=== PATIENT | female | born 1960 | race Caucasian/White ===

== ENCOUNTER 2018-05-14 10:50 | Emergency (ER) | payer MEDICARE ==
[~2018-05-14] VITALS: Ht 167.6 cm; Wt 51.8 kg
--- NOTE | ~2018-05-14 | CN ---
PATIENT NAME:LUCAS ACHARYA MEDICAL RECORD: [id number] : 60 LOCATION:.ER ADMIT DATE: ACCOUNT: [id number] CONSULTING PHYSICIAN: BRITTNEY HERNANDEZ MD REFERRING PHYSICIAN: RAEGAN ROMERO MD DATE OF CONSULTATION: 05/14/2018 CARDIOLOGY CONSULTATION DIAGNOSES: 1. Angina. 2. Out of control hypertension. 3. Family history of coronary artery disease. 4. Smoking history. HISTORY OF PRESENT ILLNESS: Ms. Acharya presents with episodes of chest discomfort and labile hypertension. She is on losartan. Her blood pressure is often high. If she takes her losartan, the blood pressure bottoms out. She has been having episodes of chest pain and chest discomfort and chest tightness along with this as well. Her troponin is normal. Her EKG is with nonspecific ST-T abnormalities. She is not having chest pain now. OVERALL IMPRESSION: Labile hypertension. Losartan obviously is not the best agent for her. She often gets palpitations with the hypertension. We will just put her on atenolol 50 mg every day and perform outpatient cardiac catheterization. Further care depends on findings catheterization. TRANSINT:[id number] Voice Confirmation ID: [id number] DOCUMENT ID: [id number] BRITTNEY HERNANDEZ MD at 1859 CC: [id number] DICTATION DATE: 05/14/18 1321 ROLLER PRINTING SUPERVISOR: 05/14/18 1329 DEP ER 05/14/18 [address] [place] [address]
[2018-05-14 11:01] VITALS: Ht 167.6 cm; Wt 51.8 kg
[2018-05-14] MEDS ORDERED: XANAX0.5 MG PO (11:02)
[2018-05-14 11:34] LABS: BASOPHILS 0.8 % (0-2); EOSINOPHILS 3.9 % (0-7); HEMATOCRIT 42.5 % (36.0-48.0); HEMOGLOBIN 14.8 g/dL (12-16); IMMATURE GRANULOCYTES 0.2 % (0-5); LYMPHOCYTES 42.6 % (15-50); MCH 30.6 pg (26.0-34.0); MCHC 34.8 g/dL (31.0-37.0); MEAN PLATELET VOLUME 9.5 fL (7.4-10.4); MONOCYTES 6.7 % (2-11); NEUTROPHILS 45.8 % (40-80); PLATELET COUNT 316 10x3/uL (130-400); RBC 4.83 10x6/uL (4.00-5.40); RDW 12.9 % (11.5-14.5); WBC 6.6 10x3/uL (4.8-10.8)
[2018-05-14 11:52] LABS: ALBUMIN 3.6 g/dL (3.4-5.0); ALKALINE PHOSPHATASE 109 U/L (46-116); ALT (SGPT) 12 U/L (10-68); BILIRUBIN - TOTAL 0.31 mg/dL (0.2-1.3); CALC OSMOLALITY 281 mosm/kg (275-300); CARBON DIOXIDE 29.1 mmol/L (21.0-32.0); CHLORIDE - SERUM 106 mmol/L (98-107); CREATININE - SERUM 1.1 mg/dL (0.6-1.3); GLUCOSE 113 mg/dL (74-106); PROTEIN - SERUM 7.3 g/dL (6.4-8.2); SODIUM 140 mmol/L (136-145); UREA NITROGEN 17 mg/dL (7-18); eGFR NON AFRICAN AMERICAN 54 mL/min (90-120)
[2018-05-14 12:02] LABS: CKMB 0.9 U/L (0.0-3.6); CREATINE KINASE 69 UL (21-215); TROPONIN-I < 0.017 ng/mL (0.000-0.060)
[2018-05-14] MEDS ORDERED: TENORMIN50 MG PO (13:16)
[2018-05-14 13:43] VITALS: BP 136/64
[2018-05-15] MEDS ORDERED: PLAVIX75 MG PO (09:30)
[2018-05-15 09:43] VITALS: Ht 167.6 cm; Wt 51.8 kg
[2018-05-15] MEDS ORDERED: TENORMIN50 MG PO (13:10)
== END 2018-05-14 13:43 | disposition home or self-care (01) ==
LOC: D.ER 10:50
PROVIDERS: Family Medicine
DX: R07.9 Chest pain, unspecified (principal); F17.200 Nicotine dependence, unspecified, uncomplicated; I10 Essential (primary) hypertension; J44.9 Chronic obstructive pulmonary disease, unspecified

== ENCOUNTER 2018-05-15 09:12 | Outpatient (CLI) | payer MEDICARE ==
[~2018-05-15] VITALS: Ht 167.6 cm; Wt 54.5 kg
--- NOTE | ~2018-05-15 | OP ---
PATIENT NAME: LUCAS BLUNT MEDICAL RECORD: [id number] :60 LOCATION:D.CAT ADMISSION DATE: SURGEON: BRITTNEY HERNANDEZ MD DATE OF OPERATION: 05/15/2018 PROCEDURES: 1. Left heart catheterization. 2. Selective coronary angiography. 3. Left ventriculogram. INDICATION: Angina and coronary artery disease. PROCEDURE IN DETAIL: After informed consent was obtained and after a detailed description of the risks, benefits as well as alternative therapies, the patient elected to proceed with angiogram and heart catheterization. The right radial area was prepped and draped in normal sterile fashion. Right radial artery was cannulated via modified Seldinger technique with placement of 5-Telugu sheath. All catheters exchanged through this sheath. FINDINGS: Left ventriculogram was performed in standard 30-degree FERNANDEZ view, reveals good cardiac wall motion throughout all segments. Overall ejection fraction estimated 60%. SELECTIVE CORONARY ANGIOGRAPHY: Left main, left anterior descending, left circumflex, right coronary artery are all smooth-walled vessels with no angiographic evidence of coronary artery disease. OVERALL IMPRESSION: 1. No angiographic evidence of coronary artery disease. 2. Normal left heart pressures. 3. Normal left ventricular systolic function. Chest pain is noncardiac in etiology. No further cardiac workup needs to be ascertained. TRANSINT:[id number] Voice Confirmation ID: [id number] DOCUMENT ID: [id number] BRITTNEY HERNANDEZ MD at 1859 CC: [id number] DICTATION DATE: 05/15/18 1258 CHIEF PAYROLL CLERK: 05/15/18 1312 DEP CLI 05/15/18 [place] [id number] [place] [id number]
--- NOTE | ~2018-05-15 | HEMODYNAMI ---
PATIENT:LUCAS BLUNT MEDICAL RECORD: [id number] : 60 LOCATION:D.CAT ADMISSION DATE: 05/15/18 Generatedon:05/15/201813:00 Patient name: LUCAS BLUNT Patient #: [id number] SSN: : 1960 Date of study: 05/15/2018 Page: Of Hemodynamic Procedure Report Patient Data Patient Demographics Procedure consent was obtained First Name: LUCAS Gender: Female Last Name: MERLENE : 1960 Patient #: [id number] Age: 58 year(s) Race: Unknown Additional ID: [id number] Contact details Address: [address] [place] [address] State: [place] City: [place] Zip code: [address] Past Medical History Allergies Allergen Reaction Date Comments Reported Penicillins 05/15/2018 Admission Admission Data Admission Date: 05/15/2018 Admission Time: 9:12 Lab Results Lab Result Date: 05/15/2018 Lab Result Time: 0:00 Biochemistry Name Units Result Min Max BUN mg/dl 20 --(----)*- 7 18 Creatinine mg/dl 0.9 --(-*--)-- 0.6 1.3 CBC Name Units Result Min Max Hemoglobin g/dl 14.9 --(-*--)-- 13.5 17.5 Procedure Procedure Types Cath Procedure Diagnostic Procedure [facility] w/Coronaries Procedure Description Procedure Date Procedure Date: 05/15/2018 Procedure Start Time: 12:50 Procedure End Time: 12:56 Procedure Staff Name Function Yobani Bhatia MD Performing Physician Mana Gardner RT Monitor Vishal Nguyễn RN Nurse Luz Elena Trevino RN Nurse Harriett Hawk RT Scrub Procedure Data Cath Procedure Fluoroscopy Diagnostic fluoroscopy Total fluoroscopy Time: 0.9 time: 0.9 min min Diagnostic fluoroscopy Total fluoroscopy dose: 108 dose: 108 mGy mGy Contrast Material Contrast Material Type Amount (ml) Isovue 300 40 Entry Location Entry Primary Successful Side Size Upsize Upsize Entry Closure Schmidt ccessful Closure Location (Fr) 1 (Fr) 2 (Fr) Remarks Device Remarks Radial Right 5 Fr Mechanical artery Compression Estimated blood loss: 5 ml Diagnostic catheters Device Type Used For End Catheter Placement DIAGNOSTIC [place] 110cm 5 Procedure Fr catheter ([id number]) Procedure Complications No complications Procedure Medications Medication Administration Route Dosage 0.9% NaCl I.V. 100 ml/hr Oxygen etCO2 Nasal cannula 2 l/min Heparin Flush Bag added to field 2 bags (1000units/500ml NS) Lidocaine 2% added to field 20 Radial Cocktail added to field 1 syringe (Verapomil 2mg/Nitro 400mcg/Heparin 1500units) Versed I.V. 1 mg Fentanyl I.V. 50 mcg Versed I.V. 1 mg Fentanyl I.V. 75 mcg Hemodynamics Rest HGB: 14.9 (g/dl) Heart Rate: 60 (bpm) Snapshots Pre Cath Intra NCS Post Cath Vital Signs Time Heart Resp SPO2 etCO2 NIBP (mmHg) Rhythm Pain Sedation Rate (ipm) (%) (mmHg) Status Level (bpm) 12:34:54 54 12 98 44 159/104(124) NSR 0 (11) 10(A) , No pain 12:39:32 56 14 99 34.6 146/91(109) NSR 0 (11) 10(A) , No pain 12:44:13 58 20 94 41.4 120/75(86) NSR 0 (11) 10(A) , No pain 12:48:49 57 13 100 43.7 108/62(85) NSR 0 (11) 9(A) , No pain 12:53:26 56 14 100 44.5 83/50(70) NSR 0 (11) 9(A) , No pain 12:59:57 60 15 97 46 87/51(73) NSR 0 (11) 10(A) , No pain 13:00:30 63 8 89 52 Aborted NSR 0 (11) 10(A) , No pain Medications Time Medication Route Dose Verified Delivered Reason Notes Effectiveness by by 12:36:45 0.9% NaCl I.V. 100 Yobani Luz Elena used for ml/hr Sriram Trevino human resource internship 12:36:58 Oxygen etCO2 2 l/min Yobani Molinayla used for Nasal Sriram Trevino procedure cannula RN 12:37:08 Heparin Flush added 2 bags Yobani Sadlera used for Bag to Sriram Trevino procedure (1000units/500ml field RN NS) 12:37:23 Lidocaine 2% added 20ml Yobani Hilton for local to vial Sriram Bhatia MD anesthetic field 12:49:19 Versed I.V. 1 mg Yobani Luz Elena for sedation Sriram Trevino RN 12:49:28 Fentanyl I.V. 50 mcg Yobani Luz Elena for sedation Sriram Trevino RN 12:52:15 Versed I.V. 1 mg Yobani Luz Elena for sedation Sriram Trevino RN 12:52:19 Fentanyl I.V. 75 mcg Yobani Luz Elena for sedation Sriram Trevino RN 12:52:23 Radial Cocktail added 1 Yobani Hilton for (Verapomil to syringe Sriram Bhatia MD vasodilation 2mg/Nitro field 400mcg/Heparin 1500units) Procedure Log Time Note 12:22:04 Vishal Nguyễn RN sent for patient. Start room use. 12:22:05 Time tracking: Regular hours (M-F 7:00 - 5:00) 12:22:08 Plan of Care:Hemodynamics will remain stable., Cardiac rhythm will remain stable., Comfort level will be maintained., Respiratory function will remain adequate., Patient/ family verbilizes understanding of procedure., Procedure tolerated without complication., Recovers from procedure without complications.. 12:29:37 Patient received from Pre/Post Procedure Room to CCL 1 Alert and oriented. Tansferred to table in Supine position. 12:29:38 Warm blankets applied, and april hugger turned on for patient comfort. 12:29:39 Correct patient and procedure confirmed by team. 12:29:40 Signed procedure consent form obtained from patient. 12:29:41 ECG and BP/O2 sat monitors applied to patient. 12:29:41 Full Disclosure recording started 12:34:05 Vital chart was started 12:34:53 Rhythm: sinus bradycardia 12:36:45 0.9% NaCl 100 ml/hr I.V. was administered by Luz Elena Trevino RN; used for procedure; 12:36:58 Oxygen 2 l/min etCO2 Nasal cannula was administered by Luz Elena Trevino RN; used for procedure; 12:37:08 Heparin Flush Bag (1000units/500ml NS) 2 bags added to field was administered by Luz Elena Trevino RN; used for procedure; 12:37:23 Lidocaine 2% 20ml vial added to field was administered by Yobani Bhatia MD; for local anesthetic; 12:42:07 Baseline sample Acquired. 12:42:17 H&P Date Dictated: 05/14/2018 Within 30 days and on chart., H&P Addendum completed by physician on day of procedure. (MUST COMPLETE FOR ALL OUTPATIENTS). 12:42:19 Pre-procedure instructions explained to patient. 12:42:19 Pre-op teaching completed and patient verbalized understanding. 12:42:20 Family in patients room. 12:42:22 Patient NPO since Midnight. 12:42:27 Patient allergic to Penicillins 12:42:30 Is the patient allergic to Iodine/contrast media? No. 12:42:31 Is patient on blood thinner?No 12:42:32 Patient diabetic? No. 12:42:35 Patient not . Patient is over age 55. 12:42:37 Previous problem with sedation/anesthesia? No ? 12:42:38 Snore? No 12:42:40 Sleep apnea? No 12:42:41 Deviated septum? No 12:42:42 Opens mouth fully? Yes 12:42:42 Sticks out tongue? Yes 12:42:45 Airway obstruction? Yes COPD 12:42:51 Dentures? No ? 12:42:55 Modified Tyler's test Ulnar < 7 seconds 12:42:56 Patient pain scale 0/10 ?. 12:43:01 IV patent on arrival in left hand with 0.[facility]% [facility] at [facility]. 12:43:05 Right Radial & Right Groin area was prepped with chlora-prep and draped in sterile fashion 12:43:06 Alarms reviewed by R. N. 12:43:06 Sharps counted by scrub and verified by R.N. 12:45:02 Use device set Radial Dx or PCI 12:45:03 ACIST Syringe (83394) opened to sterile field. 12:45:04 Bag Decanter () opened to sterile field. 12:45:04 ACIST Hand Control (79816) opened to sterile field. 12:45:05 ACIST Manifold (95037) opened to sterile field. 12:45:06 Tegaderm 4 x 4 (1626W) opened to sterile field. 12:45:08 Medline Cath Pack ([id number]) opened to sterile field. 12:45:08 DIAGNOSTIC WIRE .035 260cm J wire (744460) opened to sterile field. 12:45:09 MBrace Wrist Support ([id number]) opened to sterile field. 12:45:10 SHEATH 6Fr Prelude Radial ([id number]) opened to sterile field. 12:47:24 Lab Result : BUN 20 mg/dl 12:47:24 Lab Result : Creatinine 0.9 mg/dl 12:47:25 Lab Result : Hemoglobin 14.9 g/dl 12:48:38 --------ALL STOP TIME OUT------ 12:48:38 Final Timeout: patient, procedure, and site verified with staff and physician. All members of the team are in agreement. 12:48:40 Right Radial & Right Groin site verified by team. 12:48:43 Physical assessment completed. ASA score P 2 - A patient with mild systemic disease as per Yobani Bhatia MD. 12:48:46 Sedation plan: IV Moderate Sedation Medication:Versed, Fentanyl 12:49:19 Versed 1 mg I.V. was administered by Luz Elena Trevino RN; for sedation; 12:49:28 Fentanyl 50 mcg I.V. was administered by Luz Elena Trevino RN; for sedation; 12:49:37 Procedure started. 12:49:45 Zero performed for pressure channel P1 12:50:01 Local anesthetic to right radial artery with Lidocaine 2% by Yobani Bhatia MD.INITIAL ACCESS ONLY 12:51:24 A 5 Fr sheath was inserted into the Right Radial artery 12:51:35 A DIAGNOSTIC [place] 110cm 5 Fr catheter (136595) was advanced over the wire and used for Procedure. 12:52:15 Versed 1 mg I.V. was administered by Luz Elena Trevino RN; for sedation; 12:52:19 Fentanyl 75 mcg I.V. was administered by Luz Elena Trevino RN; for sedation; 12:52:23 Radial Cocktail (Verapomil 2mg/Nitro 400mcg/Heparin 1500units) 1 syringe added to field was administered by Yobani Bhatia MD; for vasodilation; 12:52:28 LV gram done using FERNANDEZ 12:52:30 Injector settings: Ml/sec: 5, Volume: 15, 12:52:42 EF : 60 % 12:53:40 LCA angiography performed. 12:53:58 RCA angiography performed. 12:54:08 Catheter removed. 12:54:14 Procedure ended.(Physican Out) 12:54:41 TR BAND Standard ([id number]) opened to sterile field. 12:54:48 Sheath removed intact; hemostasis achieved with Mechanical Compression to the Right Radial artery. 12:54:57 Fluoroscopy time 00.90 minutes. 12:55:00 Flurop Dose total: 108 12:55:00 Fluoroscopy dose: 108 mGy 12:55:03 Contrast amount:Isovue 300 40ml. 12:55:05 Sharps counted by scrub and verified by R.N. 12:55:08 TR band inflated with 10cc of air. 12:55:11 Post-procedure physical assessment completed. ASA score P 2 - A patient with mild systemic disease as per Yobani Bhatia MD. 12:55:15 Post procedure rhythm: unchanged. 12:55:17 Estimated blood loss: 5 ml 12:55:18 Post procedure instruction explained to patient.Patient verbalizes understanding. 12:55:18 Patient needs reinforcement of post procedure teaching. 12:56:18 Procedure and supply charges have been captured, reviewed, submitted and are correct. 12:56:20 Procedure Complication : No complications 12:56:22 Vital chart was stopped 12:56:25 See physician's report for complete and final results. 12:56:26 Report given to Pre/Post Procedure Room. 12:56:29 Patient transfered to Pre/Post Procedure Room with Bed. 12:56:31 Procedure ended. 12:56:31 Full Disclosure recording stopped 12:56:33 End room use (Document Last) Device Usage Item Name Manufacture Quantity Catalog Number Hospital Part Current M inimal Lot# / Charge Number Stock Stock Serial# Code ACIST Syringe Acist 1 81777 [id number] 452196 346137 2 0 (31081) Medical Systems revoPT Bag Decanter Microtek 1 739702 75326 370815 5 () Medical Inc. ACIST Hand Acist 1 67332 828753 085143 735025 5 Control (23239) Medical [employer] ACIST Manifold Acist 1 54819 517866 659356 440898 5 (80319) Medical Systems Inc Tegaderm 4 x 4 3M 1 1626W 984034 708608 501901 5 (1626W) Medline Cath Cardinal 1 [id number] 889534 16694 811957 5 [facility] ([id number]) DIAGNOSTIC WIRE St Guero 1 647851 387248 735808 031681 3 0 .035 260cm J wire (399238) MBrace Wrist Advanced 1 140-0250-00 655939 03801 858523 5 Support Vascular ([id number]) Dynamics SHEATH 6Fr Merit 1 [id number] 026783 409787 930867 5 Prelude Radial Medical ([id number]) DIAGNOSTIC Terumo 1 40-0728 410780 121420 851754 5 [place] 110cm 5 Fr catheter (585356) TR BAND Terumo 1 [id number] 829620 045170 235148 4 0 Standard ([id number]) Signature Audit Tell Stage Time Signature Unsigned Intra-Procedure 05/15/2018 Mana Gardner 1:00:40 PM RT(R) Signatures Monitor : Mana Gardner Signature : RT Date : Time : [id number] [place] [address]
[~2018-05-15 09:12] MED LIST: TENORMIN50 MG PO; XANAX0.5 MG PO
[2018-05-15] MEDS ORDERED: PLAVIX75 MG PO (09:30)
[2018-05-15 09:43] VITALS: BP 158/77; Ht 167.6 cm; Wt 54.5 kg
[2018-05-15 10:08] LABS: BASOPHILS 1.2 % (0-2); EOSINOPHILS 3.8 % (0-7); HEMATOCRIT 42.9 % (36.0-48.0); HEMOGLOBIN 14.9 g/dL (12-16); IMMATURE GRANULOCYTES 0.1 % (0-5); LYMPHOCYTES 37.8 % (15-50); MCH 30.8 pg (26.0-34.0); MCHC 34.7 g/dL (31.0-37.0); MCV 88.8 fL (80.0-100.0); MEAN PLATELET VOLUME 9.6 fL (7.4-10.4); MONOCYTES 6.2 % (2-11); NEUTROPHILS 50.9 % (40-80); PLATELET COUNT 315 10x3/uL (130-400); RBC 4.83 10x6/uL (4.00-5.40); RDW 12.9 % (11.5-14.5); WBC 6.8 10x3/uL (4.8-10.8)
[2018-05-15 10:20] LABS: CALCIUM 9.1 mg/dL (8.5-10.1); CARBON DIOXIDE 27.4 mmol/L (21.0-32.0); CREATININE - SERUM 0.9 mg/dL (0.6-1.3); POTASSIUM - SERUM 4.4 mmol/L (3.5-5.1)
[2018-05-15] MEDS ORDERED: TENORMIN50 MG PO (13:10)
== END 2018-05-15 15:05 | disposition home or self-care (01) ==
LOC: D.CATH 09:12
PROVIDERS: Internal Medicine Interventional Cardiology
DX: I20.9 Angina pectoris, unspecified (principal); I25.110 Atherosclerotic heart disease of native coronary artery with unstable angina pectoris; R07.9 Chest pain, unspecified

== ENCOUNTER 2018-10-31 10:55 | Emergency (ER) | payer MEDICARE ==
[~2018-10-31] VITALS: Ht 167.6 cm; Wt 61.2 kg
[~2018-10-31 10:55] MED LIST changes: +PLAVIX75 MG PO
[2018-10-31 11:02] VITALS: BP 150/95; Ht 167.6 cm; Wt 61.2 kg
== END 2018-10-31 12:48 | disposition left against medical advice (07) ==
LOC: D.ER 10:55
DX: J40 Bronchitis, not specified as acute or chronic (principal); R53.1 Weakness; R42 Dizziness and giddiness

== ENCOUNTER 2018-12-27 01:52 | Emergency (ER) | payer MEDICARE ==
[~2018-12-27] VITALS: Ht 167.6 cm; Wt 61.4 kg
[2018-12-27 01:55] VITALS: Ht 167.6 cm; Wt 61.4 kg
[2018-12-27] MEDS ORDERED: EDARBYCLOR 40-1 EACH PO (01:58)
[2018-12-27] MEDS ORDERED: HYDRALAZINE HCL25 MG PO (01:58)
[2018-12-27] MEDS ORDERED: CLEOCIN HCL300 MG PO (02:36)
[2018-12-27] MEDS ORDERED: BACTROBAN CREAM15 GM TOPICAL (02:49)
[2018-12-27 03:00] VITALS: BP 160/92
== END 2018-12-27 03:00 | disposition home or self-care (01) ==
LOC: D.ER 01:52
DX: I10 Essential (primary) hypertension (principal); K02.9 Dental caries, unspecified; T14.8XXA Other injury of unspecified body region, initial encounter; X58.XXXA Exposure to other specified factors, initial encounter; Y93.9 Activity, unspecified; Y92.89 Other specified places as the place of occurrence of the external cause

== ENCOUNTER 2019-11-21 13:45 | Emergency (ER) | payer MEDICARE ==
[~2019-11-21] VITALS: Ht 167.6 cm; Wt 70.5 kg
[~2019-11-21 13:45] MED LIST changes: +BACTROBAN CREAM15 GM TOPICAL; +CLEOCIN HCL300 MG PO; +EDARBYCLOR 40-1 EACH PO; +HYDRALAZINE HCL25 MG PO
[2019-11-21 13:52] VITALS: Ht 167.6 cm; Wt 70.5 kg
[2019-11-21] MEDS ORDERED: AUGMENTIN 875-11 TAB PO (14:07)
[2019-11-21 14:11] VITALS: BP 146/88
[2019-11-22] MEDS ORDERED: PROCARDIA XL60 MG PO (04:43)
[2019-11-22] MEDS ORDERED: CATAPRES0.1 MG PO (04:44)
[2019-11-22] MEDS ORDERED: COZAAR50 MG PO (04:44)
== END 2019-11-21 14:12 | disposition home or self-care (01) ==
LOC: D.ER 13:45
DX: S61.452A Open bite of left hand, initial encounter (principal); W54.0XXA Bitten by dog, initial encounter; Y93.9 Activity, unspecified; Y92.9 Unspecified place or not applicable; L03.114 Cellulitis of left upper limb; I10 Essential (primary) hypertension; J44.9 Chronic obstructive pulmonary disease, unspecified; Z72.0 Tobacco use

== ENCOUNTER 2019-11-22 04:38 | Inpatient (IN) | payer MEDICARE ==
[~2019-11-22] VITALS: Ht 167.6 cm; Wt 68.2 kg
[~2019-11-22 04:38] MED LIST changes: +AUGMENTIN 875-11 TAB PO
[2019-11-22 04:39] VITALS: Ht 167.6 cm; Wt 68.2 kg
[2019-11-22] MEDS ORDERED: PROCARDIA XL60 MG PO (04:43)
[2019-11-22] MEDS ORDERED: COZAAR50 MG PO (04:44)
[2019-11-22] MEDS ORDERED: CATAPRES0.1 MG PO (04:44)
[2019-11-22 05:26] LABS: BASOPHILS 0.5 % (0-2); HEMATOCRIT 45.9 % (36.0-48.0); HEMOGLOBIN 15.5 g/dL (12-16); IMMATURE GRANULOCYTES 0.1 % (0-5); LYMPHOCYTES 25.7 % (15-50); MCH 30.2 pg (26.0-34.0); MCHC 33.8 g/dL (31.0-37.0); MCV 89.3 fL (80.0-100.0); MEAN PLATELET VOLUME 8.9 fL (7.4-10.4); MONOCYTES 11.3 % (2-11); NEUTROPHILS 59.4 % (40-80); PLATELET COUNT 311 10x3/uL (130-400); RBC 5.14 10x6/uL (4.00-5.40); RDW 13.1 % (11.5-14.5); WBC 9.5 10x3/uL (4.8-10.8)
[2019-11-22 05:32] LABS: ANION GAP 10.9 mmol/L (8-16); CALCIUM 9.5 mg/dL (8.5-10.1); CARBON DIOXIDE 25.5 mmol/L (21.0-32.0); CREATININE - SERUM 1.2 mg/dL (0.6-1.3); POTASSIUM - SERUM 4.4 mmol/L (3.5-5.1)
[2019-11-22 05:37] LABS: ALBUMIN 3.8 g/dL (3.4-5.0); BILIRUBIN - TOTAL 0.19 mg/dL (0.2-1.3); PROTEIN - SERUM 7.8 g/dL (6.4-8.2)
[2019-11-22 05:51] VITALS: BP 113/70
--- NOTE | 2019-11-22 06:25 | NUR ---
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
--- NOTE | 2019-11-22 08:49 | MORECARE ---
CASE MANAGEMENT DISCHARGE SUMMARY PATIENT: LUCAS BLUNT UNIT: [id number] ADM DATE: 11/22/19 AGE: 59 : 60 SEX: F ROOM/BED: D.2139 AUTHOR: ANAT DOWNS PHYSICIAN: REFERRING PHYSICIAN: MICHAEL BREAUX MD DATE OF SERVICE: 11/22/19 Discharge Plan Patient Name: LUCAS BLUNT [facility] [facility] 1960 Planned Disposition: Left Against Medical Advice Anticipated Discharge Date: 11/22/19 Discharge Date: 11/22/2019 Expected LOS: 1 Initial Reviewer: [email or web address] Initial Review Date: 11/22/2019 Generated: 11/22/19 9:49 am Patient Name: LUCAS BLUNT Page [id number] at 0849 All edits/amendments must be made on the electronic document DICTATION DATE: 11/22/19 0849 NOISE ABATEMENT ENGINEER: KERRY 11/22/19 0849 RPT#: [id number] DC DATE:11/22/19 STATUS: DIS IN [facility] [address] [place] [address] END OF REPORT
== END 2019-11-22 07:19 | disposition left against medical advice (07) | DRG 605 ==
LOC: D.ER 04:38 → D.M2 05:06
PROVIDERS: Emergency Medicine; ADMIT Internal Medicine Nephrology; ATTEND Internal Medicine Nephrology
DX: S61.452A Open bite of left hand, initial encounter (principal); W54.0XXA Bitten by dog, initial encounter; I10 Essential (primary) hypertension; J44.9 Chronic obstructive pulmonary disease, unspecified